=== PATIENT | female | born 1995 | race Caucasian/White ===

== ENCOUNTER 2024-12-28 09:11 | Outpatient (RCR) | payer OTHER, SELFPAY ==
[2024-12-31] MEDS: RHO(D) IMMUNE GLOBULIN 300 MCG/2 ML SYRINGE IM (14:33)
== END 2025-03-28 23:59 | disposition home or self-care (01) ==
LOC: ANHLAB 09:11
PROVIDERS: Visit Provider Obstetrics & Gynecology
DX: Z34.90 Encounter for supervision of normal pregnancy, unspecified, unspecified trimester (principal)
CPT/HCPCS: 36415; 85461; 86850; 86900; 86901; 90384; 96372; J2790

== ENCOUNTER 2025-03-09 06:41 | Inpatient (IN) | payer OTHER, SELFPAY ==
[2025-03-09] VITALS (135 sets, daily range): BP systolic 90–206; BP diastolic 40–184; PULSE 64–105; RESP 16; TEMP 36.7–37.2; O2SAT 95–100; BMI 30.2
--- NOTE | 2025-03-09 06:53 | P.HP_ITS ---
H&P: HPI History of Present Illness Date/Time: 03/09/25 06:53 Chief Complaint: Induction of labor at term Narrative: Since 30-year-old 3 para 2 at 39 weeks gestation for induction labor negative for group B strep cervix is favorable. She has had 2 previous vaginal deliveries she passed her diabetic test PMFSH Family History Family History Other Patient denies significant medical history Social History Social History Substance use: never Spiritual care concerns: No Meds Home Medications and Allergies Home Medications ?Medication ?Instructions ?Recorded ?Confirmed ?Type No Home Medications 03/02/25 03/02/25 H istory Allergies Allergy/AdvReac Type Severity Reaction Status Date / Time No Known Allergies Allergy Verified 03/02/25 15:51 Exam Const: General: cooperative, healthy appearing and comfortable Nutritional Appearance: average body habitus Orientation/consciousness: oriented to person Resp: Effort & Inspection: normal respiratory effort Cardio: Rate: regular rate Rhythm: regular rhythm Heart sounds: S1 normal heart sound present and S2 normal heart sound present GI: Inspection: normal to inspection (Gravid soft uterus) : External Female Exam: normal external appearance Speculum Exam - Vagina: normal appearance of the vagina Speculum Exam - Cervix: normal appearance of the cervix (2- 3/75/2. FHT is reassuring) Assessment and Plan Assessment and plan (1) Term : Code(s): Z34.90 - Encounter for supervision of normal , unspecified, unspecified trimester Status: Acute Plan Item number for labor. Spontaneous vaginal delivery is expected. She is an epidural candidate
--- NOTE | 2025-03-09 07:14 | PM.OBPNLAB ---
Pain Control Date/time seen: 03/09/25 07:14 Pain control: tolerating well Comments: arom small fluid Pelvic Exam Dilation (cm): 3 Contractions Monitor mode: External
[2025-03-09 07:16] LABS: Hematocrit 33.3 % (37.0-47.0); Hemoglobin 10.9 g/dL (12.0-15.0); Immature Granulocyte Percent A 1.1 % (0-0.5); Lymphocytes Absolute Auto 1.92 K/mm3 (0.9-3.2); Mean Corpuscular HGB Conc 32.7 g/dl (32-36); Mean Corpuscular Hemoglobin 27.9 pg (26-34); Mean Corpuscular Volume 85.4 fl (80-100); Nucleated Red Blood Cells Absolute Auto 0.000 K/mm3 (0.0-0.012); Nucleated Red Blood Cells Perc 0.0 % (0.0-0.2); Platelet Count Result 227 k/mm3 (150-375); Red Blood Count 3.90 M/mm3 (4.2-5.4); White Blood Count 7.3 K/mm3 (4.5-10.0)
--- NOTE | 2025-03-09 07:23 | LDADM ---
This patient, Qamar Wood, was admitted to Labor/Delivery/Recovery 108 on 03/09/25 at 06:41. Plans for labor, pain management and were discussed with patient. Patient/family oriented to hospital policies and general routines including ID bracelet, bed and alarms, visiting hours, pain management, procedures, bathroom and other care routines, personal items, smoking policy, room service/diet and guest tray routines, security routines, and visiting hours. Patient/Family are encouraged to report perceived risks to care and to ask questions if they do not understand what they are told or what they should do. See OBIX for further documentation.
[2025-03-09] MEDS: OXYTOCIN 30 UNITS/NS 500 ML 30 UNITS/500 ML BAG IV CONT (07:30)
[2025-03-09] MEDS: LACTATED RINGERS 1,000 ML 125 ML IV CONT ×2 (07:30→10:43)
--- NOTE | 2025-03-09 07:55 | PM.OBPNLAB ---
Pain Control Date/time seen: 03/09/25 07:55 Pain control: tolerating well Pelvic Exam Dilation (cm): 3 Effacement (%): 70 station: -2 Amniotic membrane status: Leaking Contractions Monitor mode: External
--- NOTE | 2025-03-09 08:08 | P.PNAN_ITS ---
Anes - Eval Pre Procedure Procedure: labor epidural Date/Time: 03/09/25 08:08 Surgeon: rasheeda Preop Diagnosis: pain during labor Pre Op Diagnosis: IOL Patient Data Age: 30 Gender: F Height: Weight: Last Vital Signs Pulse 92 03/09/25 07:34 BP 115/76 03/09/25 07:34 Pulse Ox 100 03/09/25 08:04 O2 Del Method Room Air 03/09/25 07:21 Allergies Allergy/AdvReac Type Severity Reaction Status Date / Time No Known Allergies Allergy Verified 03/09/25 07:23 Home Medications ?Medication ?Instructions ?Recorded ?Confirmed ?Type No Home Medications 03/02/25 03/02/25 H istory Laboratory Tests 03/09/25 07:05 WBC 7.3 K/mm3 (4.5-10.0) RBC 3.90 L M/mm3 (4.2-5.4) Hgb 10.9 L g/dL (12.0-15.0) Hct 33.3 L % (37.0-47.0) MCV 85.4 fl (80-100) MCH 27.9 pg (26-34) MCHC 32.7 g/dl (32-36) RDW 13.5 % (11.5-14.5) Plt Count 227 k/mm3 (150-375) MPV 9.5 fl (7.4-10.4) Immature Gran % (Auto) 1.1 H % (0-0.5) Neut % (Auto) 66.3 % (45.5-73.1) Lymph % (Auto) 26.2 % (18.3-44.2) [place] % (Auto) 5.6 % (2.6-8.5) Eos % (Auto) 0.7 % (0-4.4) Baso % (Auto) 0.1 L % (0.2-1.2) Lymph # (Auto) 1.92 K/mm3 (0.9-3.2) [place] # (Auto) 0.4 K/mm3 (0.1-0.6) Eos # (Auto) 0.1 K/mm3 (0-0.3) Baso # (Auto) 0.0 K/mm3 (0.0-0.1) Abs Immat Gran (auto) 0.08 H K/mm3 (0.00-0.031) Absolute Neuts (auto) 4.9 K/mm3 (1.3-6.7) Absolute Nucleated RBC 0.000 K/mm3 (0.0-0.012) Nucleated RBC % 0.0 % (0.0-0.2) Blood Type B Negative Antibody Screen Pending Patient hx anesthesia problems: none Family hx anesthesia problems: none Results Review: All pre-operative results and documents have been reviewed as part of the pre- operative evaluation. [facility] Family History Family History Other Patient denies significant medical history Social History Social History Smoking status: Never smoker Substance use: never Lack of Transportation: No Lack of Food: Never True Current Housing: I Have Housing Concerned About Future Housing: No Difficulty Paying Gas/Electric Bills: No Difficulty Paying for Meds: No Currently Unemployed: No Education: Bachelor's Degree Difficulty w/ Childcare or Family Care: No Spiritual care concerns: No Exam Day of Procedure 03/09/25 08:08
[2025-03-09 08:22] LABS: Syphilis IgG/IgM Antibody Non-Reactive (Nonreactive)
--- NOTE | 2025-03-09 11:50 | PM.OBPNLAB ---
Pain Control Date/time seen: 03/09/25 11:50 Pain control: tolerating well and epidural Pelvic Exam Dilation (cm): 5 Effacement (%): 70 station: -2 Amniotic membrane status: Leaking Contractions Monitor mode: External
[2025-03-09] MEDS: ONDANSETRON INJ 4 MG/2 ML VIAL IV PUSH (12:30)
--- NOTE | 2025-03-09 14:39 | P.PCNOB_ITS ---
OB - Vaginal Delivery Note Procedure Delivery date: 03/09/25 Events: Elective Induction of Labor Induction method: AROM Delivery augmentation: Pitocin Delivery monitor: External FHT and External Uterine Route of delivery: Episiotomy description: None Laceration Description: None Quantitative Blood Loss (ml): 62 Anesthesia type: Epidural Narrative: Patient was admitted for induction of labor at term she had a favorable cervix artificial rupture membranes performed in the a.m., she progressed an unremarkable 1st stage of labor to completely dilated had epidural anesthesia placed when she was complete she pushed delivered head spontaneously in the MARY CARMEN position. Anterior posterior shoulder delivered spontaneously. Cord clamped x2 and cut passed off the table given Apgars of 9 [id number]. Cord blood was drawn. Placenta delivered intact spontaneously. Twenty of Pitocin placed IV to help firm the uterus. After inspecting all sidewalls no tears lacerations were noted QBL was 62cc. All sponge, needle, instrument counts were correct. There were no immediate complications [place] Baby Date of : 03/09/25 Time of : 14:32 Gestational Age by Date: 39 Infant gender: Male presentation: vertex position: Right Occiput Anterior Placenta delivery description: Spontaneous Cord Vessel Description: 3 Vessels score one minute: 9 score five minutes: 9
--- NOTE | 2025-03-09 14:41 | P.DS_ITS ---
DS: Admitting Diagnosis Discharge Date 03/10/2025 Admitting Diagnosis Term DS: Discharge Diagnosis Discharge Diagnosis (1) Term : Code(s): Z34.90 - Encounter for supervision of normal , unspecified, unspecified trimester Status: Acute DS: Summary Hospital Course Reason for hospitalization: Patient was admitted for induction of labor 03/09/2025 and underwent spontaneous vaginal delivery which was unremarkable with anesthesia being epidural Hospital Course: Patient's hospital course unremarkable. She remained afebrile. She was up, voiding without difficulty, eating regular diet, ambulating, generally without complaints. Time Spent with Patient Time attestation: Total time spent providing and/or coordinating discharge services: Exam Const: General: cooperative, healthy appearing and comfortable Nutritional Appearance: average body habitus Orientation/consciousness: oriented to person Resp: Effort & Inspection: normal respiratory effort Cardio: Rate: regular rate Rhythm: regular rhythm Heart sounds: S1 normal heart sound present and S2 normal heart sound present GI: Inspection: normal to inspection (Gravid soft uterus) : External Female Exam: normal external appearance Speculum Exam - Vagina: normal appearance of the vagina Speculum Exam - Cervix: normal appearance of the cervix (2- 3/75/2. FHT is reassuring) DS: Data Data Completed and Pending Labs on day of discharge: Labs from last 24 hours 03/09/25 07:05 WBC 7.3 RBC 3.90 L Hgb 10.9 L Hct 33.3 L MCV 85.4 MCH 27.9 MCHC 32.7 RDW 13.5 Plt Count 227 MPV 9.5 Immature Gran % (Auto) 1.1 H Neut % (Auto) 66.3 Lymph % (Auto) 26.2 [place] % (Auto) 5.6 Eos % (Auto) 0.7 Baso % (Auto) 0.1 L Lymph # (Auto) 1.92 [place] # (Auto) 0.4 Eos # (Auto) 0.1 Baso # (Auto) 0.0 Abs Immat Gran (auto) 0.08 H Absolute Neuts (auto) 4.9 Absolute Nucleated RBC 0.000 Nucleated RBC % 0.0 Syphilis IgG/IgM Ab Non-reactive Blood Type B Negative Antibody Screen Positive Antibody Identification Passive Due to RH Imm Glob Antigen Identification Not Reportable DENNIS, IgG Interpret Not Performed DENNIS, Poly Interpret Neg DENNIS, Complement Interp Not Performed Discharge Plan Discharge Attending physician on discharge: Jose Green Discharging Clinician: Jose Green Patient Disposition: Home Activity: may shower, no straining and pelvic rest Diet: heart healthy Wound Care Instructions: follow printed instructions Patient Instructions: Antibiotic Form Patient Language: Georgian Stand Alone Forms: General Discharge Information Follow-up/Referrals: Jose Green MD [Physician, BI ARCHITECT] Discharge Medications: No Action No Home Medications Date of admission: 03/09/25 06:41 Primary Care Provider: PHYSICIAN,[facility] TECHNICIAN Admitting Provider: Jose Green Attending physician on admission: Jose Green Condition: Stable
[2025-03-09] MEDS: OXYTOCIN 30 UNITS/NS 500 ML 30 UNITS/500 ML BAG 125 UNITS IV CONT (15:04)
[2025-03-10 04:43] VITALS: BP 117/80; PULSE 57; RESP 18; TEMP 36.8; O2SAT 100
[2025-03-10 04:52] LABS: Hematocrit 30.5 % (37.0-47.0); Hemoglobin 9.8 g/dL (12.0-15.0)
[2025-03-10] MEDS: IBUPROFEN 600 MG TABLET PO ×2 (04:55→11:59)
--- NOTE | 2025-03-10 06:40 | PM.OBPNVD ---
OB - PN: Subj Subjective Date/time seen: 03/10/25 06:40 Patient comments: no complaints, pain well controlled and tolerating diet [place] baby status: doing well OB - PN: Obj Data Labs 03/10/25 04:26 Labs: Laboratory Results - last 24 hr 03/09/25 03/10/25 07:05 04:26 WBC 7.3 RBC 3.90 L Hgb 10.9 L 9.8 L Hct 33.3 L 30.5 L MCV 85.4 MCH 27.9 MCHC 32.7 RDW 13.5 Plt Count 227 MPV 9.5 Immature Gran % (Auto) 1.1 H Neut % (Auto) 66.3 Lymph % (Auto) 26.2 [place] % (Auto) 5.6 Eos % (Auto) 0.7 Baso % (Auto) 0.1 L Lymph # (Auto) 1.92 [place] # (Auto) 0.4 Eos # (Auto) 0.1 Baso # (Auto) 0.0 Abs Immat Gran (auto) 0.08 H Absolute Neuts (auto) 4.9 Absolute Nucleated RBC 0.000 Nucleated RBC % 0.0 Syphilis IgG/IgM Ab Non-reactive Blood Type B Negative B Negative Antibody Screen Positive TNP Antibody Identification Passive Due to RH Imm Glob Antigen Identification Not Reportable DENNIS, IgG Interpret Not Performed DENNIS, Poly Interpret Neg DENNIS, Complement Interp Not Performed OB - PN A/P Assessment and Plan (1) Term : Code(s): Z34.90 - Encounter for supervision of normal , unspecified, unspecified trimester Status: Acute Plan home Time Spent With Patient Time: Total time spent is greater than 50% in coordination of care (as documented) at patient's floor/unit and/or counseling patient: Exam Const: General: cooperative, healthy appearing and comfortable Nutritional Appearance: average body habitus Orientation/consciousness: oriented to person Resp: Effort & Inspection: normal respiratory effort Cardio: Rate: regular rate Rhythm: regular rhythm Heart sounds: S1 normal heart sound present and S2 normal heart sound present GI: Inspection: normal to inspection (Gravid soft uterus) : External Female Exam: normal external appearance Speculum Exam - Vagina: normal appearance of the vagina Speculum Exam - Cervix: normal appearance of the cervix (2- 3/75/2. FHT is reassuring)
[2025-03-10 07:35] VITALS: BP 110/58; PULSE 66; RESP 16; TEMP 36.7; O2SAT 99
--- NOTE | 2025-03-10 08:00 | PC.NURSE ---
Mother verbalizes she is able to independently latch with appropriate positioning and alignment. She denies any nipple discomfort and is responsively . Infant is currently meeting outcomes for weight, output, jaundice, blood sugar and feeding frequencies of 8-12 times in 24 hours. Mother declines any additional assistance or education at this time. Mother is encouraged to call for assistance if her infant doesn?t latch, pain with latching, questions or concerns. Mother voiced understanding of information shared along with the mom/baby guide for an additional resource. Reported to the Primary RN.
[2025-03-10] MEDS: ACETAMINOPHEN 325 MG TABLET 650 MG PO ×3 (08:21→16:41)
[2025-03-10] MEDS: MULTIVIT/MIN/PREN/FOL AC/IRON TABLET 1 TAB PO (08:21)
[2025-03-10] MEDS: LANOLIN (LANSINOH) 7.5 GM CREAM 1 APPLIC TOPICAL (08:23)
--- NOTE | 2025-03-10 08:49 | WPDANLDPN2 ---
Anes-Prog Note L&D Date/Time: 03/10/25 08:49 Neuro status: Neuro function grossly intact. Cardiovascular status: normal Respiratory status: normal Airway patency: baseline Mental status: baseline Post-Op hydration status: normal Vital Signs: Last Vital Signs Temp 36.8 C 03/10/25 04:43 Pulse 57 L 03/10/25 04:43 Resp 18 03/10/25 04:43 BP 117/80 03/10/25 04:43 Pulse Ox 100 03/10/25 04:43 O2 Del Method Room Air 03/09/25 19:30 Pain score (VAS): 0 Post-procedural complaints: none Patient feedback: Patient satisfied with anesthetic care.
[2025-03-10 12:13] VITALS: BP 105/64; PULSE 68; RESP 16; TEMP 36.7; O2SAT 100
[2025-03-10] MEDS: RHO(D) IMMUNE GLOBULIN 300 MCG/2 ML SYRINGE IM (13:09)
[2025-03-10] MEDS: DOCUSATE SODIUM 100 MG CAPSULE PO (16:40)
[2025-03-10 19:15] VITALS: BP 110/73; PULSE 61; RESP 16; TEMP 36.4; O2SAT 99
[2025-03-11] MEDS: IBUPROFEN 600 MG TABLET PO (05:35)
--- NOTE | 2025-03-11 06:56 | PM.OBPNVD ---
OB - PN: Subj Subjective Date/time seen: 03/11/25 06:56 Patient comments: no complaints and tolerating diet [place] baby status: doing well OB - PN: Obj Data Labs 03/10/25 04:26 Labs: Laboratory Results - last 24 hr 03/10/25 04:26 Blood Type B Negative Antibody Screen TNP Screen Negative Baby's Blood Type Ab pos Baby's DENNIS Negative Doses of RhIg Required 1 OB - PN A/P Assessment and Plan (1) Term : Code(s): Z34.90 - Encounter for supervision of normal , unspecified, unspecified trimester Status: Acute Plan home Time Spent With Patient Time: Total time spent is greater than 50% in coordination of care (as documented) at patient's floor/unit and/or counseling patient: Exam Const: General: cooperative, healthy appearing and comfortable Nutritional Appearance: average body habitus Orientation/consciousness: oriented to person Resp: Effort & Inspection: normal respiratory effort Cardio: Rate: regular rate Rhythm: regular rhythm Heart sounds: S1 normal heart sound present and S2 normal heart sound present GI: Inspection: normal to inspection (Gravid soft uterus) : External Female Exam: normal external appearance Speculum Exam - Vagina: normal appearance of the vagina Speculum Exam - Cervix: normal appearance of the cervix (2- 3/75/2. FHT is reassuring)
[2025-03-11 08:40] VITALS: BP 120/81; PULSE 67; RESP 18; TEMP 36.4; O2SAT 100
[2025-03-11] MEDS: MULTIVIT/MIN/PREN/FOL AC/IRON TABLET 1 TAB PO (09:22)
== END 2025-03-11 12:50 | disposition home or self-care (01) | DRG 807 ==
LOC: ANHLDR 14:42 → ANHOB2 17:00
PROVIDERS: Admitting Provider Obstetrics & Gynecology; Visit Provider Obstetrics & Gynecology
DX: O80 Encounter for full-term uncomplicated delivery (principal); Z37.0 Single live birth; Z3A.39 39 weeks gestation of pregnancy
CPT/HCPCS: 36415; 85014; 85018; 85025; 85461; 86593; 86850; 86880; 86900; 86901; 86902; 90384; A9270; J2405; J2590; J2790; J2795; J7120